=== PATIENT | male | born 2000 | race Hispanic/Latino ===

== ENCOUNTER 2020-05-29 21:37 | Emergency (ER) | payer OTHER ==
[2020-05-29] MEDS ORDERED: HYDROCODONE/ACETAMINOPHEN 10/325 MG TAB ONE (22:25)
== END 2020-05-29 23:23 | disposition home or self-care (01) ==
LOC: EDH 21:37
DX: S83.92XA Sprain of unspecified site of left knee, initial encounter (principal); M79.605 Pain in left leg; J45.909 Unspecified asthma, uncomplicated; X50.1XXA Overexertion from prolonged static or awkward postures, initial encounter; Y93.89 Activity, other specified; Y92.098 Other place in other non-institutional residence as the place of occurrence of the external cause; Y99.8 Other external cause status
CPT/HCPCS: 29505; 73552; 73562; 73590; 73630

== ENCOUNTER 2021-12-19 12:42 | Emergency (ER) | payer OTHER ==
[~2021-12-19] VITALS: Ht 190.5 cm; Wt 95.3 kg
[2021-12-19] MEDS ORDERED: LACTATED RINGERS 1000ML 1,000 ML IV STA (12:44)
[2021-12-19] MEDS ORDERED: ONDANSETRON 4MG INJ ONE (12:46)
[2021-12-19] MEDS ORDERED: MORPHINE 4 MG SYG ONE (12:46)
[2021-12-19 12:59] LABS: BASOPHILS % (AUTO) 0.6 % (0.0-5.0); EOSINOPHILS % (AUTO) 0.7 % (0.0-8.0); HEMATOCRIT 45.3 % (42-54); LYMPHOCYTES % (AUTO) 25.6 % (21.0-51.0); MEAN CORPUSCULAR HEMOGLOBIN 28.6 pg (27.0-33.0); MEAN CORPUSCULAR HGB CONC 32.9 g/dL (32.0-36.0); MEAN CORPUSCULAR VOLUME 86.9 fL (79-99); MONOCYTES % (AUTO) 6.1 % (3.0-13.0); NEUTROPHILS % (AUTO) 66.7 % (40.0-77.0); PLATELET COUNT (AUTO) 280 K/uL (130-400); RED BLOOD CELL COUNT(AUTO) 5.21 MIL/uL (4.50-6.20); RED CELL DISTRIBUTION WIDTH 12.5 % (11.0-15.5); WHITE BLOOD COUNT (AUTO) 7.2 K/uL (4.8-10.8)
[2021-12-19] MEDS ORDERED: MORPHINE 4 MG SYG IV ONE (13:00)
[2021-12-19] MEDS ORDERED: ONDANSETRON 4MG INJ IVP ONE (13:00)
[2021-12-19] MEDS ORDERED: TETANUS/DIPHTHERIA TOXOID [ADULT] 0.5 ML VIAL IM ONE (13:00)
[2021-12-19 13:21] LABS: ALBUMIN 3.9 g/dL (3.5-5.0); BILIRUBIN,TOTAL 0.5 mg/dL (0.2-1.0); POTASSIUM 3.4 mmol/L (3.5-5.1); TOTAL PROTEIN, SERUM 7.5 g/dL (6.0-8.3)
[2021-12-19 14:11] LABS: APPEARANCE,URINE Clear (CLEAR); BILIRUBIN,URINE Negative (NEGATIVE); COLOR,URINE Yellow (YELLOW); GLUCOSE, URINE (UA) Negative (NEGATIVE); KETONES,URINE Negative (NEGATIVE); LEUKOCYTE ESTERASE ,URINE Negative (NEGATIVE); NITRATE,URINE Negative (NEGATIVE); OCCULT BLOOD,URINE Negative (NEGATIVE); PROTEIN,URINE Trace mg/dL (NEGATIVE)
[2021-12-19 14:16] VITALS: BP 126/80
[2021-12-19] MEDS ORDERED: IBUP-1552 PO (14:20)
[2021-12-19 14:28] LABS: BACTERIA,URINE Few /HPF (None Seen); RBC,URINE None Seen /HPF (0-1); SQUAMOUS EPITHELIAL CELL,UR None Seen /HPF (0-2); WBC,URINE None Seen /HPF (0-1)
== END 2021-12-19 14:34 | disposition home or self-care (01) ==
LOC: EDH 12:42
DX: T20.10XA Burn of first degree of head, face, and neck, unspecified site, initial encounter (principal); T22.10XA Burn of first degree of shoulder and upper limb, except wrist and hand, unspecified site, initial encounter; T22.111A Burn of first degree of right forearm, initial encounter; T24.101A Burn of first degree of unspecified site of right lower limb, except ankle and foot, initial encounter; T31.0 Burns involving less than 10% of body surface; Z79.1 Long term (current) use of non-steroidal anti-inflammatories (NSAID); X08.8XXA Exposure to other specified smoke, fire and flames, initial encounter; Y93.89 Activity, other specified; Y92.89 Other specified places as the place of occurrence of the external cause; Y99.8 Other external cause status
CPT/HCPCS: 36415; 71045; 80053; 81001; 85025; 90471; 90714; 96361; 96374; 96375; 99284; J2270; J2405; J7120

== ENCOUNTER 2023-05-13 15:12 | Emergency (ER) | payer BC ==
[~2023-05-13] VITALS: Ht 180.3 cm; Wt 104.3 kg
[~2023-05-13 15:12] MED LIST: IBUP-1552 PO
[2023-05-13 15:13] VITALS: BP 138/92; PULSE 80; RESP 16
[2023-05-13] MEDS ORDERED: ACETAMINOPHEN 500 MG TABLET PO ONE (16:00)
[2023-05-13 16:17] LABS: BASOPHILS # (AUTO) 0.04 K/uL (0.00-0.20); BASOPHILS % (AUTO) 0.6 % (0.0-5.0); EOSINOPHILS # (AUTO) 0.15 K/uL (0.00-0.70); EOSINOPHILS % (AUTO) 2.1 % (0.0-8.0); HEMATOCRIT 45.1 % (42-54); IMMATURE GRANULOCYTE ABSOLUTE 0.01 K/uL (0-1); LYMPHOCYTES # (AUTO) 1.9 K/uL (1.0-4.8); LYMPHOCYTES % (AUTO) 26.6 % (21.0-51.0); MEAN CORPUSCULAR HEMOGLOBIN 29.2 pg (27.0-33.0); MEAN CORPUSCULAR HGB CONC 34.1 g/dL (32.0-36.0); MEAN CORPUSCULAR VOLUME 85.6 fL (79-99); MONOCYTES # (AUTO) 0.5 K/uL (0.1-1.0); MONOCYTES % (AUTO) 7.1 % (3.0-13.0); NEUTROPHILS # (AUTO) 4.5 K/uL (1.8-7.7); NEUTROPHILS % (AUTO) 63.5 % (40.0-77.0); PLATELET COUNT (AUTO) 297 K/uL (130-400); RED BLOOD CELL COUNT(AUTO) 5.27 MIL/uL (4.50-6.20); RED CELL DISTRIBUTION WIDTH 12.1 % (11.0-15.5); WHITE BLOOD COUNT (AUTO) 7.2 K/uL (4.8-10.8)
[2023-05-13 16:28] LABS: POTASSIUM 4.3 mmol/L (3.5-5.1)
[2023-05-13 16:33] LABS: ALBUMIN 3.6 g/dL (3.5-5.0); BILIRUBIN,TOTAL 0.4 mg/dL (0.2-1.0); TOTAL PROTEIN, SERUM 6.8 g/dL (6.0-8.3)
[2023-05-13 16:34] LABS: APPEARANCE,URINE CLEAR (CLEAR); BILIRUBIN,URINE NEGATIVE (NEGATIVE); COLOR,URINE COLORLESS (YELLOW); GLUCOSE, URINE (UA) NEGATIVE (NEGATIVE); KETONES,URINE NEGATIVE (NEGATIVE); LEUKOCYTE ESTERASE ,URINE 75 Leu/uL (NEGATIVE); NITRATE,URINE NEGATIVE (NEGATIVE); OCCULT BLOOD,URINE NEGATIVE (NEGATIVE); PROTEIN,URINE NEGATIVE (NEGATIVE); UROBILINOGEN,URINE 0.2 mg/dL (0.2-1.0)
[2023-05-13 16:38] LABS: AMPHET/METH SCREEN,URINE NEGATIVE (NEGATIVE); BARBITURATE SCREEN, URINE NEGATIVE (NEGATIVE); BENZODIAZEPINES SCREEN,URINE NEGATIVE (NEGATIVE); CANNABINOID SCREEN,URINE POSITIVE (NEGATIVE); COCAINE SCREEN,URINE NEGATIVE (NEGATIVE); OPIATE SCREEN,URINE NEGATIVE (NEGATIVE); PHENCYCLIDINE SCREEN,URINE NEGATIVE (NEGATIVE)
[2023-05-13 16:48] LABS: ADD UA MICROSCOPIC YES
[2023-05-13 16:51] LABS: RBC,URINE 0-1 /HPF (0-1); SQUAMOUS EPITHELIAL CELL,UR RARE /HPF (0-2); WBC,URINE 26-50 /HPF (0-1)
[2023-05-13] MEDS ORDERED: IBUP-2070 PO (17:14)
[2023-05-13] MEDS ORDERED: SULF1TAB42 PO (17:14)
[2023-05-13] MEDS ORDERED: METOCLOPRAMIDE 10 MG/2 ML VIAL IM ONE (17:30)
[2023-05-13] MEDS ORDERED: METOCLOPRAMIDE 10 MG/2 ML VIAL ONE (17:36)
== END 2023-05-13 17:45 | disposition home or self-care (01) ==
LOC: EDH 15:12
DX: R55 Syncope and collapse (principal); R51.9 Headache, unspecified; F12.90 Cannabis use, unspecified, uncomplicated
CPT/HCPCS: 99284; 70450; 80053; 80305; 83690; 85025; 87088; 36415; 96372; 93005; 81001; J2765

== ENCOUNTER 2024-04-11 14:21 | Emergency (ER) | payer BC ==
[~2024-04-11] VITALS: Ht 190.5 cm; Wt 99.8 kg
[~2024-04-11 14:21] MED LIST changes: +CYCL10TA16 PO; +IBUP-2070 PO; +MELO-106 PO; +PREG25 PO; +SULF1TAB42 PO
[2024-04-11 15:01] LABS: BASOPHILS # (AUTO) 0.04 K/uL (0.00-0.20); BASOPHILS % (AUTO) 0.4 % (0.0-5.0); EOSINOPHILS # (AUTO) 0.02 K/uL (0.00-0.70); EOSINOPHILS % (AUTO) 0.2 % (0.0-8.0); HEMATOCRIT 43.7 % (42-54); IMMATURE GRANULOCYTE ABSOLUTE 0.03 K/uL (0-1); LYMPHOCYTES # (AUTO) 1.3 K/uL (1.0-4.8); MEAN CORPUSCULAR HEMOGLOBIN 29.4 pg (27.0-33.0); MEAN CORPUSCULAR HGB CONC 34.6 g/dL (32.0-36.0); MONOCYTES # (AUTO) 0.5 K/uL (0.1-1.0); MONOCYTES % (AUTO) 4.8 % (3.0-13.0); NEUTROPHILS # (AUTO) 7.6 K/uL (1.8-7.7); NEUTROPHILS % (AUTO) 80.3 % (40.0-77.0); PLATELET COUNT (AUTO) 286 K/uL (130-400); RED BLOOD CELL COUNT(AUTO) 5.14 MIL/uL (4.50-6.20); RED CELL DISTRIBUTION WIDTH 12.1 % (11.0-15.5); WHITE BLOOD COUNT (AUTO) 9.5 K/uL (4.8-10.8)
[2024-04-11 15:13] LABS: POTASSIUM 4.1 mmol/L (3.5-5.1)
[2024-04-11 15:22] LABS: ALBUMIN 4.6 g/dL (3.5-5.0); BILIRUBIN,TOTAL 0.7 mg/dL (0.2-1.0); TOTAL PROTEIN, SERUM 8.1 g/dL (6.0-8.3)
[2024-04-11] MEDS: 0.9%NACL 1000ML 1,000 ML IV ONE (15:29)
[2024-04-11] MEDS: ACETAMINOPHEN 500 MG TABLET PO ONE (15:29)
[2024-04-11 15:41] LABS: APPEARANCE,URINE CLEAR (CLEAR); BILIRUBIN,URINE NEGATIVE (NEGATIVE); COLOR,URINE LIGHT-YELLOW (YELLOW); GLUCOSE, URINE (UA) NEGATIVE (NEGATIVE); KETONES,URINE 20 mg/dL (NEGATIVE); LEUKOCYTE ESTERASE ,URINE 25 Leu/uL (NEGATIVE); NITRATE,URINE NEGATIVE (NEGATIVE); OCCULT BLOOD,URINE NEGATIVE (NEGATIVE); PROTEIN,URINE 20 mg/dL (NEGATIVE); UROBILINOGEN,URINE 0.2 mg/dL (0.2-1.0)
[2024-04-11 15:44] LABS: ADD UA MICROSCOPIC YES
[2024-04-11 15:46] LABS: MUCUS,URINE RARE LPF (None Seen); RBC,URINE 0-1 /HPF (0-1); SQUAMOUS EPITHELIAL CELL,UR RARE /HPF (0-2)
[2024-04-11 15:48] LABS: AMPHET/METH SCREEN,URINE NEGATIVE (NEGATIVE); BARBITURATE SCREEN, URINE NEGATIVE (NEGATIVE); BENZODIAZEPINES SCREEN,URINE NEGATIVE (NEGATIVE); CANNABINOID SCREEN,URINE POSITIVE (NEGATIVE); COCAINE SCREEN,URINE NEGATIVE (NEGATIVE); OPIATE SCREEN,URINE NEGATIVE (NEGATIVE); PHENCYCLIDINE SCREEN,URINE NEGATIVE (NEGATIVE)
[2024-04-11 16:43] VITALS: BP 130/75; PULSE 70; RESP 20; O2SAT 99
== END 2024-04-11 16:52 | disposition home or self-care (01) ==
LOC: EDH 14:21
DX: S00.03XA Contusion of scalp, initial encounter (principal); R55 Syncope and collapse; F41.9 Anxiety disorder, unspecified; F32.A Depression, unspecified; F12.90 Cannabis use, unspecified, uncomplicated; Z79.899 Other long term (current) drug therapy; Z98.890 Other specified postprocedural states; X58.XXXA Exposure to other specified factors, initial encounter; Y93.89 Activity, other specified; Y92.89 Other specified places as the place of occurrence of the external cause; Y99.8 Other external cause status
CPT/HCPCS: 99284; 70450; 84484; 80053; 80305; 85025; 36415; 93005; 81001; J7030

== ENCOUNTER 2024-05-12 22:34 | Emergency (ER) | payer BC ==
[~2024-05-12] VITALS: Ht 190.5 cm; Wt 99.3 kg
[2024-05-12 22:57] LABS: BASOPHILS # (AUTO) 0.03 K/uL (0.00-0.20); BASOPHILS % (AUTO) 0.4 % (0.0-5.0); EOSINOPHILS # (AUTO) 0.09 K/uL (0.00-0.70); EOSINOPHILS % (AUTO) 1.3 % (0.0-8.0); HEMATOCRIT 39.4 % (42-54); IMMATURE GRANULOCYTE ABSOLUTE 0.01 K/uL (0-1); LYMPHOCYTES # (AUTO) 2.2 K/uL (1.0-4.8); LYMPHOCYTES % (AUTO) 31.5 % (21.0-51.0); MEAN CORPUSCULAR HEMOGLOBIN 29.4 pg (27.0-33.0); MEAN CORPUSCULAR HGB CONC 34.8 g/dL (32.0-36.0); MEAN CORPUSCULAR VOLUME 84.5 fL (79-99); MONOCYTES # (AUTO) 0.4 K/uL (0.1-1.0); MONOCYTES % (AUTO) 5.2 % (3.0-13.0); NEUTROPHILS # (AUTO) 4.4 K/uL (1.8-7.7); NEUTROPHILS % (AUTO) 61.5 % (40.0-77.0); PLATELET COUNT (AUTO) 277 K/uL (130-400); RED BLOOD CELL COUNT(AUTO) 4.66 MIL/uL (4.50-6.20); RED CELL DISTRIBUTION WIDTH 11.9 % (11.0-15.5); WHITE BLOOD COUNT (AUTO) 7.1 K/uL (4.8-10.8)
[2024-05-12 23:05] LABS: CREATININE 1.1 mg/dL (0.5-1.3); POTASSIUM 3.5 mmol/L (3.5-5.1)
[2024-05-12 23:52] LABS: COVID19 (SARS ANTIGEN RAPID) PRESUMPTIVE NEGATIVE (NEGATIVE)
[2024-05-12 23:53] LABS: INFLUENZA TYPE A Negative For Type A (NEGATIVE); INFLUENZA TYPE B Negative For Type B (NEGATIVE)
[2024-05-13] MEDS: ACETAMINOPHEN 500 MG TABLET PO ONE ×2
[2024-05-13 00:02] LABS: APPEARANCE,URINE CLEAR (CLEAR); BILIRUBIN,URINE NEGATIVE (NEGATIVE); COLOR,URINE LIGHT-YELLOW (YELLOW); GLUCOSE, URINE (UA) NEGATIVE (NEGATIVE); KETONES,URINE NEGATIVE (NEGATIVE); LEUKOCYTE ESTERASE ,URINE NEGATIVE Leu/uL (NEGATIVE); NITRATE,URINE NEGATIVE (NEGATIVE); OCCULT BLOOD,URINE NEGATIVE (NEGATIVE); PH,URINE 5.5 (5.0-8.0); PROTEIN,URINE NEGATIVE (NEGATIVE); UROBILINOGEN,URINE 0.2 mg/dL (0.2-1.0)
[2024-05-13 00:05] LABS: ADD UA MICROSCOPIC NO
[2024-05-13 00:27] LABS: AMPHET/METH SCREEN,URINE NEGATIVE (NEGATIVE); BARBITURATE SCREEN, URINE NEGATIVE (NEGATIVE); BENZODIAZEPINES SCREEN,URINE NEGATIVE (NEGATIVE); CANNABINOID SCREEN,URINE POSITIVE (NEGATIVE); COCAINE SCREEN,URINE NEGATIVE (NEGATIVE); OPIATE SCREEN,URINE NEGATIVE (NEGATIVE); PHENCYCLIDINE SCREEN,URINE NEGATIVE (NEGATIVE)
[2024-05-13] MEDS: 0.9%NACL 1000ML 1,000 ML IV ONE (00:40)
[2024-05-13] MEDS: PROCHLORPERAZINE 10MG/2ML INJ IV ONE (00:40)
[2024-05-13] MEDS: DiphenhydrAMINE HCL 50 MG/ML VIAL IM ONE (00:40)
[2024-05-13 01:12] VITALS: BP 107/70; PULSE 69; RESP 18; O2SAT 98
== END 2024-05-13 01:16 | disposition home or self-care (01) ==
LOC: EDH 22:34
DX: G43.909 Migraine, unspecified, not intractable, without status migrainosus (principal); Z20.822 Contact with and (suspected) exposure to COVID-19; B34.9 Viral infection, unspecified; F41.9 Anxiety disorder, unspecified; F31.9 Bipolar disorder, unspecified; F43.10 Post-traumatic stress disorder, unspecified; Z79.899 Other long term (current) drug therapy; F12.90 Cannabis use, unspecified, uncomplicated; Z79.2 Long term (current) use of antibiotics
CPT/HCPCS: 99284; 70450; 87426; 80048; 80305; 85025; 87804 ×2; 36415; 81003; 96374; 96372; J1200; J7030; J0780

== ENCOUNTER 2024-07-03 17:40 | Emergency (ER) | payer BC ==
[~2024-07-03] VITALS: Ht 190.5 cm; Wt 99.8 kg
[2024-07-03 18:16] LABS: BASOPHILS # (AUTO) 0.04 K/uL (0.00-0.20); BASOPHILS % (AUTO) 0.4 % (0.0-5.0); EOSINOPHILS # (AUTO) 0.09 K/uL (0.00-0.70); HEMATOCRIT 42.4 % (42-54); IMMATURE GRANULOCYTE ABSOLUTE 0.04 K/uL (0-1); LYMPHOCYTES # (AUTO) 1.9 K/uL (1.0-4.8); LYMPHOCYTES % (AUTO) 20.5 % (21.0-51.0); MEAN CORPUSCULAR HEMOGLOBIN 29.3 pg (27.0-33.0); MEAN CORPUSCULAR HGB CONC 34.4 g/dL (32.0-36.0); MONOCYTES # (AUTO) 0.4 K/uL (0.1-1.0); MONOCYTES % (AUTO) 4.6 % (3.0-13.0); NEUTROPHILS # (AUTO) 6.6 K/uL (1.8-7.7); NEUTROPHILS % (AUTO) 73.1 % (40.0-77.0); PLATELET COUNT (AUTO) 262 K/uL (130-400); RED BLOOD CELL COUNT(AUTO) 4.99 MIL/uL (4.50-6.20); RED CELL DISTRIBUTION WIDTH 12.2 % (11.0-15.5)
[2024-07-03 18:30] LABS: CREATININE 1.1 mg/dL (0.5-1.3); POTASSIUM 3.5 mmol/L (3.5-5.1)
--- NOTE | 2024-07-03 18:34 | HMCIMG ---
CT HEAD WITHOUT CONTRAST INDICATION: Seizures left-sided. TECHNIQUE: Noncontrast axial helical CT images from the vertex through the skull base using 5 mm slice thickness without contrast material. CT was performed with one or more of the following dose reduction techniques: Automated exposure control, adjustment of the mA and/or kV according to patient size, or use of iterative reconstruction technique. COMPARISON: None FINDINGS: The cerebral and cerebellar hemispheres are age-appropriate in appearance. No evidence for abnormal extra-axial fluid collections or masses. The ventricles and sulci are normal in size and configuration. No evidence for intracranial parenchymal, epidural, or subdural hemorrhage, mass effect or midline shift. The navarro-white matter differentiation is well preserved. No secondary evidence to suggest acute ischemia. The brainstem and cerebellum appear normal. The visualized orbits appear unremarkable. The visible paranasal sinuses and mastoid air cells are clear. The calvarium appears normal. IMPRESSION: No acute intracranial process identified.
[2024-07-03] MEDS: ketOROlac 15MG/ML VIAL (15MG/ML) IV ONE (20:05)
[2024-07-03] MEDS: 0.9%NACL 1000ML 1,000 ML IV ONE (20:05)
[2024-07-03 20:10] LABS: APPEARANCE,URINE CLEAR (CLEAR); BILIRUBIN,URINE NEGATIVE (NEGATIVE); COLOR,URINE LIGHT-YELLOW (YELLOW); GLUCOSE, URINE (UA) NEGATIVE (NEGATIVE); KETONES,URINE NEGATIVE (NEGATIVE); LEUKOCYTE ESTERASE ,URINE NEGATIVE Leu/uL (NEGATIVE); NITRATE,URINE NEGATIVE (NEGATIVE); OCCULT BLOOD,URINE NEGATIVE (NEGATIVE); PROTEIN,URINE 10 mg/dL (NEGATIVE); UROBILINOGEN,URINE 0.2 mg/dL (0.2-1.0)
[2024-07-03 20:11] LABS: ADD UA MICROSCOPIC YES
[2024-07-03 20:12] LABS: BACTERIA,URINE RARE /HPF (None Seen); MUCUS,URINE RARE LPF (None Seen); RBC,URINE 0-1 /HPF (0-1); SQUAMOUS EPITHELIAL CELL,UR RARE /HPF (0-2)
[2024-07-03 20:19] LABS: AMPHET/METH SCREEN,URINE NEGATIVE (NEGATIVE); BARBITURATE SCREEN, URINE NEGATIVE (NEGATIVE); BENZODIAZEPINES SCREEN,URINE NEGATIVE (NEGATIVE); CANNABINOID SCREEN,URINE POSITIVE (NEGATIVE); COCAINE SCREEN,URINE NEGATIVE (NEGATIVE); OPIATE SCREEN,URINE NEGATIVE (NEGATIVE); PHENCYCLIDINE SCREEN,URINE NEGATIVE (NEGATIVE)
[2024-07-03] MEDS ORDERED: KETO10TA2 PO (20:46)
--- NOTE | 2024-07-03 20:46 | ERN ---
General Chief Complaint: Headache Stated Complaint: HX OF SZ,LIGHTHEADED,SEVER LT SIDE HEAD PAIN,FEELS Time Seen by MD: 17:46 Time Seen by Midlevel: 17:46 Source: patient History of Present Illness Initial Comments Patient is a 24-year-old male with a past medical history of epilepsy presenting for evaluation of left-sided headache that has been ongoing for the last five days. Patient also reports having history of tension headaches and this feels similar to that. Patient states his last seizure was approximately one year ago. He reports compliance with his seizure medication. Patient denies any other symptoms at this time. Patient states he recently moved from [place]. He states he usually uses marijuana for his headaches but has been unable to given the it is illegal in the state of [place]. Allergies: Coded Allergies: No Known Drug Allergies (Unverified Allergy, Unknown, 12/19/21) Home Meds Active Scripts Ketorolac Tromethamine (Ketorolac Tromethamine) 10 Mg Tablet, 10 MG PO BID for 5 Days, #10 TAB Prov:ANDREW COLLINS 07/03/24 Cyclobenzaprine HCl (Flexeril) 10 Mg Tab, 10 MG PO TID for muscle sstiffness, #90 TAB 2 Refills Prov:STEFFANY SABA Sr., MD 01/04/24 Pregabalin (Lyrica) 25 Mg Cap, 25 MG PO DAILYDINNER, #30 CAP 2 Refills Prov:STEFFANY SABA Sr., MD 01/04/24 Meloxicam (Meloxicam) 7.5 Mg Tablet, 7.5 MG PO DAILY, #30 TAB 2 Refills Prov:STEFAFNY SABA Sr., MD 01/04/24 Ibuprofen (Ibuprofen) 600 Mg Tablet, 600 MG PO Q6H PRN for PAIN, #30 TAB Prov:DEE PIERCE 05/13/23 Sulfamethoxazole/Trimethoprim (Bactrim Ds Tablet) 1 Each Tablet, 1 TAB PO BID for 7 Days, #14 TAB 0 Refills Prov:DEE PIERCE 05/13/23 Ibuprofen (Ibu) 400 Mg Tablet, 800 MG PO TID, #45 TAB Prov:FITZ BARRETT 12/19/21 Past Medical History Past Medical History: Asthma, Seizure Medical History Other: PTSD Past Surgical History: Tonsillectomy, Unknown Family History Family History: Negative Social History Social History: Negative ROS Dictation CONSTITUTIONAL: Negative except for HPI HEAD/FACE: Negative except for HPI EENT: Negative except for HPI RESPIRATORY: Negative except for HPI GASTROINTESTINAL/ABDOMINAL: Negative except for HPI GENITOURINARY: Negative except for HPI MUSCULOSKELETAL: Negative except for HPI INTEGUMENTARY: Negative except for HPI NEUROLOGICAL/PSYCH: Negative except for HPI HEMATOLOGIC/LYMPHATIC: Negative except for HPI All Systems Negative, Except as noted above. 13 point review of systems assessed and all negative except for above. Physical Exam Physical Exam Dictation Vital Signs reviewed General Appearance: Alert, oriented x 3, no acute distress, well developed, nourished. Head and Face: Tenderness over the left temporal bone Eyes: PERRL, pink conjunctivas, eyelid no trauma, anterior chamber with arcus senilis. Ears: Pinnas intact and no signs of trauma or erythema ear canals clear and no discharge TM no erythema Nose: No discharge, no bleeding. Oropharynx: Mouth normal, tongue pink, pharynx clear,no erythema, tonsils no exudates, no abscesses noted, mucous membrane moist Neck: Supple, non-tender, no thyromegaly, no masses, no JVD, no bruits Breast:Deferred Chest:No tenderness, no crepitus, no paradoxical movement, no retractions Lungs:Clear, well-ventilated, symmetric, no rales, no wheezing, no rhonchi, no stridor, good breath sounds bilaterally Heart: Regular rate, regular rhythm, no murmur, no gallops Vascular: no peripheral edema, Abdomen: Soft, positive bowel sounds, nondistended, no guarding, nontender, no rebound, no masses no hepatomegaly, no splenomegaly, no Verdugo's sign, no hernias. Rectal: Deferred Genital: Deferred Neurological: Normal speech, motor function intact, sensory function intact Musculoskeletal: Neck nontender, full range of motion, back nontender, full range of motion, Extremities: nontender, full range of motion Skin: Color pink, dry, no turgor, no rash, no lacerations, no abrasions, no contusions. Lymphatic: Deferred Results Laboratory and Microbiology Lab and Micro Result Laboratory Tests Test 07/03/24 18:05 07/03/24 20:03 White Blood Count 9.0 K/uL (4.8-10.8) Red Blood Count 4.99 MIL/uL (4.50-6.20) Hemoglobin 14.6 g/dL (14.0-18.0) Hematocrit 42.4 % (42-54) Mean Corpuscular Volume 85.0 fL (79-99) Mean Corpuscular Hemoglobin 29.3 pg (27.0-33.0) Mean Corpuscular Hemoglobin Concent 34.4 g/dL (32.0-36.0) Red Cell Distribution Width 12.2 % (11.0-15.5) Platelet Count 262 K/uL (130-400) Mean Platelet Volume 9.6 fL (7.5-10.5) Immature Granulocyte % (Auto) 0.4 % (0-1) Neutrophils (%) (Auto) 73.1 % (40.0-77.0) Lymphocytes (%) (Auto) 20.5 % (21.0-51.0) L Monocytes (%) (Auto) 4.6 % (3.0-13.0) Eosinophils (%) (Auto) 1.0 % (0.0-8.0) Basophils (%) (Auto) 0.4 % (0.0-5.0) Neutrophils # (Auto) 6.6 K/uL (1.8-7.7) Lymphocytes # (Auto) 1.9 K/uL (1.0-4.8) Monocytes # (Auto) 0.4 K/uL (0.1-1.0) Eosinophils # (Auto) 0.09 K/uL (0.00-0.70) Basophils # (Auto) 0.04 K/uL (0.00-0.20) Absolute Immature Granulocyte (auto 0.04 K/uL (0-1) Nucleated Red Blood Cells 0.0 % (0.0-0.19) Sodium Level 140 mmol/L (136-145) Potassium Level 3.5 mmol/L (3.5-5.1) Chloride Level 101 mmol/L (101-111) Carbon Dioxide Level 27 mmol/L (21-32) Blood Urea Nitrogen 9 mg/dL (7-18) Creatinine 1.1 mg/dL (0.5-1.3) Glomerular Filtration Rate Calc 95 mL/min (>90) Random Glucose 156 mg/dL (70-105) H Lactic Acid Level 2.7 mmol/L (0.8-2.5) H Total Calcium 9.2 mg/dL (8.5-10.1) Total Creatine Kinase 120 U/L (21-232) Urine Color LIGHT-YELLOW (YELLOW) Urine Appearance CLEAR (CLEAR) Urine pH 7.0 (5.0-8.0) Urine Specific [place] 1.024 (1.001-1.031) Urine Protein 10 mg/dL (NEGATIVE) H Urine Glucose (UA) NEGATIVE mg/dL (NEGATIVE) Urine Ketones NEGATIVE mg/dL (NEGATIVE) Urine Occult Blood NEGATIVE (NEGATIVE) Urine Nitrate NEGATIVE (NEGATIVE) Urine Bilirubin NEGATIVE mg/dL (NEGATIVE) Urine Urobilinogen 0.2 mg/dL (0.2-1.0) Urine Leukocyte Esterase NEGATIVE Shu/uL Urine RBC 0-1 /HPF (0-1) Urine WBC 2-5 /HPF (0-1) H Urine Squamous Epithelial Cells RARE /HPF (0-2) Urine Bacteria RARE /HPF (None Seen) Urine Opiates Screen NEGATIVE (NEGATIVE) Urine Barbiturates Screen NEGATIVE (NEGATIVE) Urine Phencyclidine Screen NEGATIVE (NEGATIVE) Urine Amphetamines Screen NEGATIVE (NEGATIVE) Urine Benzodiazepines Screen NEGATIVE (NEGATIVE) Urine Cocaine Screen NEGATIVE (NEGATIVE) Urine Marijuana (THC) Screen POSITIVE (NEGATIVE) H Labs Reviewed?: Yes MDM MDM: Patient is a 24-year-old male with a past medical history of epilepsy presenting for evaluation of left-sided headache that has been ongoing for the last five days. Patient also reports having history of tension headaches and this feels similar to that. Patient states his last seizure was approximately one year ago. He reports compliance with his seizure medication. Patient denies any other symptoms at this time. Patient states he recently moved from [place]. He states he usually uses marijuana for his headaches but has been unable to given the it is illegal in the state of [place]. On physical examination patient is in no acute distress. GCS is 15. There is tenderness over the left temporal lobe behind the left ear however bilateral ear exa mination is unremarkable. There is no signs of otitis media or otitis externa. Given history of epilepsy CT scan was obtained which showed no acute abnormalities. CBC showed no leukocytosis with a normal white blood cell count of 9.0. His hemoglobin is stable at 14.6. His platelets are one at 262. His chemistries show an elevated lactic acid of 2.7 however the remainder of his chemistries are unremarkable. Patient was given 1 L of IV fluids. His urine is negative for any infection. His urine drug screen is positive for marijuana however patient admitted to recent marijuana use. Patient was given Toradol IV and reports feeling significantly improved. Patient will be discharged home with supportive management. He is to follow up with his PCP 1-2 days for repeat evaluation or return to the ER for any new or worsening symptoms. Differential diagnosis: Seizure disorder, tension headache, migraine headache, intracranial bleed, mastoiditis, otitis media, otitis externa There are no social concerns with this patient. Prescription drug management Prescriptions will include: Ketorolac Medical management and examination interpretation discussions were had by me with other qualified healthcare professionals as indicated for the patient's care. ED Course Orders Procedure Category Date Status Time Cbc With Differential LAB 07/03/24 Complete 17:58 Basic Metabolic Panel LAB 07/03/24 Complete 17:58 Ct Head/Brain W/O CT 07/03/24 Resulted Contrast 17:58 Drug Screen Urine LAB 07/03/24 Complete 17:58 Urinalysis Profile LAB 07/03/24 Complete 17:58 Lactic Acid LAB 07/03/24 Complete 17:58 Creatine Kinase, Total LAB 07/03/24 Complete 17:58 0.9%Nacl 1000ml (Ns PHA 07/03/24 Complete 1000ml) 20:00 Ketorolac PHA 07/03/24 Complete Tromethamine 15mg/Ml 20:00 Morphine 2mg Syg PHA 07/03/24 Complete (Morphine 2mg Syg) 21:00 Ondansetron 4mg Inj PHA 07/03/24 Complete (Zofran 4mg Inj) 21:00 Vital Signs Date Time Temp Pulse Resp B/P (MAP) Pulse Ox O2 Delivery O2 Flow Rate FiO2 07/03/24 21:01 98.6 77 18 112/75 100 Room Air* 0 07/03/24 20:05 89 18 94/68 99 Room Air* 0 07/03/24 17:45 99.0 82 16 115/72 Room Air 0 [place] [address] [address] IMAGING REPORT Signed PATIENT: CAROLYNN HOYOS MR#: [id number] : 2000 SEX: M AGE: 24 LOCATION: [facility] ORDER 58 STATUS: REG ER REPORT#: [id number] SERVICE 57 REASON: seizures severe left sided headache ORDERING PHYSICIAN: ANDREW COLLINS PROCEDURE: HEAD WO - CT HEAD/BRAIN W/O CONTRAST CT HEAD WITHOUT CONTRAST INDICATION: Seizures left-sided. TECHNIQUE: Noncontrast axial helical CT images from the vertex through the skull base using 5 mm slice thickness without contrast material. CT was performed with one or more of the following dose reduction techniques: Automated exposure control, adjustment of the mA and/or kV according to patient size, or use of iterative reconstruction technique. COMPARISON: None FINDINGS: The cerebral and cerebellar hemispheres are age-appropriate in appearance. No evidence for abnormal extra-axial fluid collections or masses. The ventricles and sulci are normal in size and configuration. No evidence for intracranial parenchymal, epidural, or subdural hemorrhage, mass effect or midline shift. The navarro-white matter differentiation is well preserved. No secondary evidence to suggest acute ischemia. The brainstem and cerebellum appear normal. The visualized orbits appear unremarkable. The visible paranasal sinuses and mastoid air cells are clear. The calvarium appears normal. IMPRESSION: No acute intracranial process identified. DICTATED BY: JAYME SEGURA MD DATE: 07/03/241830 ELECTRONICALLY SIGNED BY: JAYME SEGURA MD DATE: 07/03/241833 DX & DISP Disposition: Discharge Departure Impression: Primary Impression: Marijuana smoker Additional Impressions: Tension headache, History of seizures Condition: Stable Scripts Ketorolac Tromethamine (Ketorolac Tromethamine) 10 Mg Tablet 10 MG PO BID for 5 Days, #10 TAB Prov: ANDREW COLLINS 07/03/24 Referrals: NONE (PCP) MURRAY YEAGER MD Time of Disposition: 20:46 I have reviewed the case, and I agree with, Diagnosis and Plan I performed the substantive portion of the visit. I have reviewed and personally made and approve the management plan that is documented in the note by myself or the SHYANNE. I acknowledge for responsibility for the patient's management plan. ANDREW COLLINS Jul 03, 2024 20:46 FILOMENA GRAMAJO DO Jul 15, 2024 00:19
[2024-07-03] MEDS: ondanSETRON 4MG INJ IVP ONE (20:55)
[2024-07-03] MEDS: morPHINE 2 MG SYG IVP ONE (20:57)
[2024-07-03 21:01] VITALS: BP 112/75; PULSE 77; RESP 18; TEMP 98.6; O2SAT 100
== END 2024-07-03 21:34 | disposition home or self-care (01) ==
LOC: EDH 17:40
DX: G44.209 Tension-type headache, unspecified, not intractable (principal); F12.90 Cannabis use, unspecified, uncomplicated; R56.9 Unspecified convulsions; J45.909 Unspecified asthma, uncomplicated; Z79.899 Other long term (current) drug therapy; Z79.1 Long term (current) use of non-steroidal anti-inflammatories (NSAID); Z90.89 Acquired absence of other organs
CPT/HCPCS: 99284; 96374; 70450; 96375; 82550; 80048; 80305; 85025; 83605; 36415; 81001; J2270; J7030; J2405; J1885

== ENCOUNTER 2024-12-06 23:14 | Emergency (ER) | payer BC ==
[~2024-12-06] VITALS: Ht 190.5 cm; Wt 115.2 kg
[~2024-12-06 23:14] MED LIST changes: +KETO10TA2 PO
[2024-12-06 23:55] LABS: BASOPHILS # (AUTO) 0.06 K/uL (0.00-0.20); BASOPHILS % (AUTO) 0.8 % (0.0-5.0); EOSINOPHILS # (AUTO) 0.17 K/uL (0.00-0.70); EOSINOPHILS % (AUTO) 2.2 % (0.0-8.0); HEMATOCRIT 42.4 % (42-54); IMMATURE GRANULOCYTE ABSOLUTE 0.04 K/uL (0-1); LYMPHOCYTES # (AUTO) 2.1 K/uL (1.0-4.8); LYMPHOCYTES % (AUTO) 26.3 % (21.0-51.0); MEAN CORPUSCULAR HEMOGLOBIN 29.5 pg (27.0-33.0); MEAN CORPUSCULAR HGB CONC 35.4 g/dL (32.0-36.0); MEAN CORPUSCULAR VOLUME 83.3 fL (79-99); MONOCYTES # (AUTO) 0.5 K/uL (0.1-1.0); MONOCYTES % (AUTO) 6.6 % (3.0-13.0); NEUTROPHILS % (AUTO) 63.6 % (40.0-77.0); PLATELET COUNT (AUTO) 322 K/uL (130-400); RED BLOOD CELL COUNT(AUTO) 5.09 MIL/uL (4.50-6.20); RED CELL DISTRIBUTION WIDTH 12.3 % (11.0-15.5); WHITE BLOOD COUNT (AUTO) 7.8 K/uL (4.8-10.8)
[2024-12-07 00:02] LABS: POTASSIUM 3.7 mmol/L (3.5-5.1)
[2024-12-07] MEDS: 0.9%NACL 1000ML 1,000 ML IV ONE (00:04)
[2024-12-07] MEDS: PROCHLORPERAZINE 10MG/2ML INJ IV ONE (00:04)
[2024-12-07] MEDS: DiphenhydrAMINE HCL 50 MG/ML VIAL IV ONE (00:04)
[2024-12-07 00:43] VITALS: BP 116/60; PULSE 80; RESP 18; TEMP 98; O2SAT 98
[2024-12-07] MEDS ORDERED: DICL20GE TP (00:44)
--- NOTE | 2024-12-07 00:44 | ERN ---
General Chief Complaint: Headache Stated Complaint: C/O HEADACHE Time Seen by MD: 23:21 Source: patient History of Present Illness Initial Comments Patient is a 24-year-old male coming in to be evaluated for headache. Patient does state that he has a history of chronic tension headaches usually has flare- ups. No neurological deficit he states that he feels well from that standpoint but just has more of a chronic headaches which frequently appears. Allergies: Coded Allergies: No Known Drug Allergies (Unverified Allergy, Unknown, 12/19/21) Home Meds Active Scripts Ketorolac Tromethamine (Ketorolac Tromethamine) 10 Mg Tablet, 10 MG PO BID for 5 Days, #10 TAB Prov:ANDREW COLLINS 07/03/24 Cyclobenzaprine HCl (Flexeril) 10 Mg Tab, 10 MG PO TID for muscle sstiffness, #90 TAB 2 Refills Prov:STEFFANY SABA Sr., MD 01/04/24 Pregabalin (Lyrica) 25 Mg Cap, 25 MG PO DAILYDINNER, #30 CAP 2 Refills Prov:STEFFANY SABA Sr., MD 01/04/24 Meloxicam (Meloxicam) 7.5 Mg Tablet, 7.5 MG PO DAILY, #30 TAB 2 Refills Prov:STEFFANY SABA Sr., MD 01/04/24 Ibuprofen (Ibuprofen) 600 Mg Tablet, 600 MG PO Q6H PRN for PAIN, #30 TAB Prov:DEE PIERCE 05/13/23 Sulfamethoxazole/Trimethoprim (Bactrim Ds Tablet) 1 Each Tablet, 1 TAB PO BID for 7 Days, #14 TAB 0 Refills Prov:DEE PIERCE 05/13/23 Ibuprofen (Ibu) 400 Mg Tablet, 800 MG PO TID, #45 TAB Prov:FITZ BARRETT 12/19/21 Past Medical History Past Medical History: Seizure Medical History Other: PTSD Past Surgical History: None Family History Family History: Negative Social History Social History: Negative ROS Dictation CONSTITUTIONAL: No chills, no fever, no weakness, no diaphoresis, no malaise. HEAD/FACE: No signs of trauma. EENT: No eye pain, no blurred vision, no tearing, no double vision, no ear pain, no ear discharge, no nose pain, no nasal congestion, no throat pain, no throat swelling, no mouth pain. RESPIRATORY: No cough, no orthopnea, no SOB, no stridor, no wheezing. CARDIOVASCULAR: No chest pain, no edema, no palpitations, no syncope. GASTROINTESTINAL/ABDOMINAL: No abdominal pain, no constipation, no diarrhea, no nausea, no vomiting. GENITOURINARY: No abnormal discharge, no dysuria, no frequent urination, no hematuria. No complaints of pain in the genitals. MUSCULOSKELETAL: No back pain, no gout, no joint pain, no joint swelling, no muscle pain, no muscle stiffness, no neck pain. INTEGUMENTARY: No change in color, no change in hair/nails, no dryness, no lesion, no lumps, no rash. NEUROLOGICAL/PSYCH: No anxiety, not depressed, no emotional problem, no headache, no numbness, no pre-existing deficit, no history of seizures, no tremors, no weakness. HEMATOLOGIC/LYMPHATIC: Not anemic, no history of blood clots, no apparent bleeding, no bruising, glands not swollen. All Systems Negative, Except as Noted. Physical Exam Physical Exam Dictation VITAL SIGNS: Reviewed. GENERAL APPEARANCE: Alert, oriented x3, no acute distress, obese. HEAD AND FACE: Non-traumatic. EYES: PERRL, pink conjunctivas, eyelid no trauma, anterior chamber clear. EARS: Pinnas intact and no signs of trauma or erythema. Ear canals clear and no discharge. TMs no erythema. NOSE: No discharge, no bleeding. OROPHARYNX: Mouth normal, teeth no caries, tongue pink. Pharynx clear, no erythema. Tonsils no exudates, no abscesses noted. Mucous membrane moist. NECK: Supple, non-tender, no thyromegaly, no masses, no JVD, no bruits. BREAST: Deferred. CHEST: No tenderness, no crepitus, no paradoxical movement, no retractions. LUNGS: Clear, well-ventilated, symmetric, no rales, no wheezing, no rhonchi, no stridor, good breath sounds bilaterally. HEART: Regular rate, regular rhythm, no murmur, no gallops. VASCULAR: No peripheral edema. ABDOMEN: Soft, positive bowel sounds, nondistended, no guarding, nontender, no rebound, no masses no hepatomegaly, no splenomegaly, no Verdugo's sign, no hernias. RECTAL: Deferred. GENITAL: Deferred. NEUROLOGICAL: Normal speech, gross motor function intact, gross sensory function intact. MUSCULOSKELETAL: Neck nontender, full range of motion, back nontender, full range of motion. EXTREMITIES: Nontender, full range of motion. SKIN: Color pink, dry, no turgor, no rash, no lacerations, no abrasions, no contusions. LYMPHATICS: Deferred. Results Laboratory and Microbiology Lab and Micro Result Laboratory Tests Test 12/06/24 23:48 White Blood Count 7.8 K/uL (4.8-10.8) Red Blood Count 5.09 MIL/uL (4.50-6.20) Hemoglobin 15.0 g/dL (14.0-18.0) Hematocrit 42.4 % (42-54) Mean Corpuscular Volume 83.3 fL (79-99) Mean Corpuscular Hemoglobin 29.5 pg (27.0-33.0) Mean Corpuscular Hemoglobin Concent 35.4 g/dL (32.0-36.0) Red Cell Distribution Width 12.3 % (11.0-15.5) Platelet Count 322 K/uL (130-400) Mean Platelet Volume 9.7 fL (7.5-10.5) Immature Granulocyte % (Auto) 0.5 % (0-1) Neutrophils (%) (Auto) 63.6 % (40.0-77.0) Lymphocytes (%) (Auto) 26.3 % (21.0-51.0) Monocytes (%) (Auto) 6.6 % (3.0-13.0) Eosinophils (%) (Auto) 2.2 % (0.0-8.0) Basophils (%) (Auto) 0.8 % (0.0-5.0) Neutrophils # (Auto) 5.0 K/uL (1.8-7.7) Lymphocytes # (Auto) 2.1 K/uL (1.0-4.8) Monocytes # (Auto) 0.5 K/uL (0.1-1.0) Eosinophils # (Auto) 0.17 K/uL (0.00-0.70) Basophils # (Auto) 0.06 K/uL (0.00-0.20) Absolute Immature Granulocyte (auto 0.04 K/uL (0-1) Nucleated Red Blood Cells 0.0 % (0.0-0.19) Sodium Level 137 mmol/L (136-145) Potassium Level 3.7 mmol/L (3.5-5.1) Chloride Level 102 mmol/L (101-111) Carbon Dioxide Level 30 mmol/L (21-32) Blood Urea Nitrogen 13 mg/dL (7-18) Creatinine 1.0 mg/dL (0.5-1.3) Glomerular Filtration Rate Calc 106 mL/min (>90) Random Glucose 107 mg/dL (70-105) H Total Calcium 8.1 mg/dL (8.5-10.1) L Labs Reviewed?: Yes MDM MDM: Differential diagnosis: Chronic tension headache, tension headache flare-up, dehydration Patient is a 24-year-old gentleman coming in to be evaluated for headache. Patient does have a history of chronic tension headache. Patient received a headache cocktail states he feels much better is ready to go home. Patient will be discharged in stable condition. ED Course Orders Procedure Category Date Status Time Cbc With Differential LAB 12/06/24 Complete 23:22 Basic Metabolic Panel LAB 12/06/24 Complete 23:22 0.9%Nacl 1000ml (Ns PHA 12/06/24 Complete 1000ml) 23:30 Prochlorperazine PHA 12/06/24 Complete 10mg/2ml Inj 23:30 Diphenhydramine Hcl PHA 12/06/24 Complete (Benadryl Inj) 23:30 Current Medications Medications (Trade) Dose Ordered Sig/Lindsey Route PRN Reason Start Time Stop Time Status Last Admin Dose Admin Diphenhydramine HCl (BENAdryl INJ) 25 mg ONCE ONCE IV 12/06/24 23:30 12/06/24 23:34 DC 12/07/24 00:04 Prochlorperazine Edisylate (Compazine 10mg/ 2ml Inj) 10 mg ONCE ONCE IV 12/06/24 23:30 12/06/24 23:34 DC 12/07/24 00:04 Sodium Chloride 1,000 ml @ 0 mls/hr ONCE ONCE IV 12/06/24 23:30 12/06/24 23:34 DC 12/07/24 00:04 Vital Signs Date Time Temp Pulse Resp B/P (MAP) Pulse Ox O2 Delivery O2 Flow Rate FiO2 12/06/24 23:16 97.9 74 20 122/75 98 Room Air DX & DISP Disposition: Discharge Departure Impression: Primary Impression: Tension headache Condition: Stable Scripts Diclofenac Sodium (Voltaren Arthritis Pain) 1 % Gel..gram. 4 GM TP BID for 10 Days, #1 TUBE Prov: CIRILO TORRES MD 12/07/24 Additional Instructions: FOLLOW-UP WITH PRIMARY CARE PROVIDER IN 1 TO 2 DAYS. TAKE MEDICATIONS DIRECTED HERE IN THE EMERGENCY ROOM. OKAY TO CONTINUE HOME MEDICATIONS UNLESS OTHERWISE DISCUSSED DURING YOUR VISIT IN THE EMERGENCY ROOM TODAY. RETURN TO YOUR NEAREST EMERGENCY ROOM IF SYMPTOMS WORSEN OR IF THERE IS NO IMPROVEMENT. CALL 911 IF YOU NEED IMMEDIATE ASSISTANCE. TAKE TYLENOL [id number] NEEDED AND IF NO CONTRAINDICATIONS ARE PRESENT. INCREASE ORAL HYDRATION. A WOUND CULTURE OR URINE CULTURE WAS ORDERED HERE IN THE EMERGENCY ROOM DEPARTMENT PLEASE FOLLOW-UP WITH PRIMARY CARE PROVIDER AND ADVISE THEM TO GET REPEAT PORTS FROM OUR FACILITY. IF YOU HAD ANY SUNITA WRAP/SPLINTS THAT WERE APPLIED HERE, PLEASE DO NOT REMOVE THEM UNTIL YOU SEE YOUR PRIMARY CARE OR SPECIALTY. Referrals: Referrals: SELF,REFERRAL (PCP) ANDREW TORRES MD Time of Disposition: 00:43 CIRILO TORRES MD Dec 07, 2024 00:44
== END 2024-12-07 00:53 | disposition home or self-care (01) ==
LOC: EDH 23:14
DX: G44.209 Tension-type headache, unspecified, not intractable (principal); Z79.1 Long term (current) use of non-steroidal anti-inflammatories (NSAID); Z79.899 Other long term (current) drug therapy
CPT/HCPCS: 99284; 80048; 85025; 36415; 96374; 96361; 96375; J1200; J7030; J0780